=== PATIENT | male | born 1995 | race Caucasian/White ===

== ENCOUNTER 2018-01-28 12:47 | Emergency (ER) | payer OTHER ==
[2018-01-28] MEDS ORDERED: oxyCODONE 5 MG TABLET PO STA (13:02)
--- NOTE | 2018-01-28 13:02 | ED Physician Documentation ---
PD HPI UPPER EXT INJURY - Stated complaint Stated Complaint: R ARM INJ - Chief complaint Chief Complaint: Ext Problem - History obtained from History obtained from: Patient - History of Present Illness Location: Right, Wrist Type of injury: Fall Where injury occurred: Home Timing - onset: Today Timing - details: Abrupt onset, Still present Worsened by: Moving Associated symptoms: Numbness (ulnar side of hand) Contributing factors: No: Prior ortho surgery Similar symptoms before: Has not had sx before Review of Systems Ten Systems: 10 systems reviewed and negative Constitutional: reports: Reviewed and negative Cardiac: reports: Reviewed and negative Respiratory: reports: Reviewed and negative PD PAST MEDICAL HISTORY - Present Medications Home Medications: Ambulatory Orders Medication Instructions Recorded Confirmed Oxycodone HCl/Acetaminophen 1 - 2 each PO Q6H PRN #20 tablet 01/28/18 [Percocet 5-325 mg Tablet] - Allergies Allergies/Adverse Reactions: Allergies Allergy/AdvReac Type Severity Reaction Status Date / Time No Known Drug Allergies Allergy Verified 01/28/18 12:52 PD ED PE NORMAL - Vitals Vital signs reviewed: Yes - General General: Alert and oriented X 3, No acute distress - Extremities Extremities: Other (Mild dorsal deformity of the right wrist and limited range of motion of the wrist. The hand and elbow are nontender. He has diminished not absent sensation in ulnar distribution. Unable to check any motor function in the hand due to pain.) - Neuro Neuro: Alert and oriented X 3, Normal speech Results - Vitals Vitals: Vital Signs - 24 hr 01/28/18 12:50 Temperature 36 C L Heart Rate 60 Respiratory 18 Rate Blood Pressure 140/86 H O2 Saturation 99 Oxygen O2 Source Room air - Rads (name of study) R wrist Radiology: EMP read contemporaneously (Comminuted distal radial frx, intraarticular) Procedures - Splint (location) RUE Splint applied by: Physician, Tech Type of splint: Fiberglass, Long arm, Sugar tong Other: Patient tolerated well, No complications, Neurovascular intact, Sling provided PD MEDICAL DECISION MAKING - Consults Consults: Consulted (name) (Dr Jeremiah Perry, english composition instructor ortho, will call pt to arrange followup.) Departure - Departure Disposition: 01 Home, Self Care Clinical Impression: Distal radius fracture, right Qualifiers: Encounter type: initial encounter Fracture type: closed Fracture morphology: other intra-articular Qualified Code(s): S52.571A - Other intraarticular fracture of lower end of right radius, initial encounter for closed fracture Condition: Good Record reviewed to determine appropriate education?: Yes Instructions: ED Fx Upper Ext Follow-Up: Houston Perry MD [Provider Admit Priv/Credential] - Prescriptions: Oxycodone HCl/Acetaminophen [Percocet 5-325 mg Tablet] 1 - 2 each PO Q6H PRN #20 tablet PRN Reason: pain Comments: Keep the splint on and dry, Dr Perry should be calling you to arrange followup. Your blood pressure was elevated today on check into the emergency department. This does not mean that you have hypertension, it is a common phenomenon to come to the emergency department and have elevated blood pressure. I recommend that you see your primary care physician within the week to have it rechecked when you are feeling better. Do not drink or drive while taking narcotic pain medication. Note that many narcotic pain relievers also contain Tylenol/acetaminophen. Please ensure that your total dose of acetaminophen from all sources does not exceed 3 g (3000 mg) per day. You may get constipated while on this medication. Take a stool softener such as Colace twice a day while you are on it. Also add an [id number] laxative such as senna or MiraLAX on any day that you do not have a bowel movement. If you received a narcotic pain medication or sedative while in the emergency department, do not drive for the next 24 hours. Forms: Activity restrictions
--- NOTE | 2018-01-28 13:27 | XRAY Report ---
Reason: wrist inj Procedure Date: 01/28/2018 Accession Number: [id number] / [id number] Procedure: XR - Wrist 3 View RT CPT Code: FULL RESULT: EXAM: RIGHT WRIST RADIOGRAPHY EXAM DATE: 01/28/2018 01:16 PM. CLINICAL HISTORY: Wrist inj. COMPARISON: None. TECHNIQUE: 3 views. FINDINGS: Bones: Comminuted, mildly impacted and displaced intra-articular fracture of the distal radius with mild dorsal angulation. Joints: Unremarkable. Soft Tissues: Unremarkable. IMPRESSION: 1. Acute comminuted intra-articular distal radius fracture. RADIA
[2018-01-28 13:40] VITALS: BP 136/80
--- NOTE | 2018-01-29 09:14 | CONSULTATION NOTE ---
Referring Provider Name of Referring Provider:: Elio Yuen Consult Date: 01/29/18 History - Past Medical History MRSA Hx?: No - POLST Patient has POLST: No Meds/Allgy - Home Medications Home Medications: Ambulatory Orders Medication Instructions Recorded Confirmed Oxycodone HCl/Acetaminophen 1 - 2 each PO Q6H PRN #20 tablet 01/28/18 [Percocet 5-325 mg Tablet] - Allergies Allergies/Adverse Reactions: Allergies Allergy/AdvReac Type Severity Reaction Status Date / Time No Known Drug Allergies Allergy Verified 01/28/18 12:52 Conclusion/Plan - Other Other Results/Comments: Advised that patient was in ED by Dr. Yuen. Patient was reportedly with comminuted intrarticular displaced distal radius fracture. Patient was to be splinted and referred for outpatient followup. Asked that patient be advised that would review films and see if appropriate candidate for orthopedic care here or would benefit from hand and wrist specialist. Have reviewed films and contacted patient and via telephone and indicated that (orthopedic) hand and wrist specialist would be most appropriate for care though offered that we see him in clinic and make the referral at that time if he prefers. have given them two MD names in [place] per their preference. indicated that timely evaluation would be appropriate and that if they are unable to be seen in next few days to contact our office to facilitate care. they will notify us in meantime if problems/questions. questions answered. patient and agree with plan and are appreciative of call.
== END 2018-01-28 13:39 | disposition home or self-care (01) ==
LOC: ED 12:47
DX: S52.571A Other intraarticular fracture of lower end of right radius, initial encounter for closed fracture (principal); W20.8XXA Other cause of strike by thrown, projected or falling object, initial encounter; Y93.H9 Activity, other involving exterior property and land maintenance, building and construction; Y92.009 Unspecified place in unspecified non-institutional (private) residence as the place of occurrence of the external cause; R03.0 Elevated blood-pressure reading, without diagnosis of hypertension
CPT/HCPCS: 29105; 73110; 99283; A9270